=== PATIENT | female | born 1990 | race Caucasian/White ===

== ENCOUNTER 2022-05-11 08:14 | Emergency (ER) | payer MEDICAID ==
[~2022-05-11] VITALS: Ht 157.5 cm; Wt 63.0 kg
[2022-05-11] MEDS ORDERED: LEVE1000 MT (08:56)
[2022-05-11] MEDS ORDERED: METF-416 MT (08:56)
[2022-05-11] MEDS ORDERED: LEVETIRACETAM 1000MG PREMIX 100 ML IV ONE (09:00)
[2022-05-11 09:38] LABS: BASOPHILS % 0.5 % (0.0-2.0); CHLORIDE 108 mEq/L (98-107); EOSINOPHILS % 2.2 % (0.0-5.0); HEMATOCRIT. 38.7 % (36.0-48.0); LYMPHOCYTES % 23.4 % (20.0-50.0); MEAN CORPUSCULAR HEMOGLOBIN 28.9 pg (28.0-32.0); MEAN CORPUSCULAR VOLUME 85.9 fL (81.0-99.0); MEAN PLATELET VOLUME 9.6 fl (7.4-10.4); MONOCYTES % 6.4 % (2.0-8.0); NEUTROPHILS % 67.5 % (40.0-76.0); PLATELET 249 x1000/uL (130-400); RED BLOOD CELL COUNT 4.51 mill/uL (4.2-5.4); RED CELL DISTRIBUTION WIDTH 13.3 % (11.6-14.6)
[2022-05-11 09:47] LABS: ETHANOL BLOOD < 10 mg/dL
[2022-05-11 10:45] VITALS: BP 111/72
[2022-05-11] MEDS ORDERED: ACETAMINOPHEN 325MG TABLET PO ONE (11:00)
== END 2022-05-11 11:00 | disposition home or self-care (01) ==
LOC: EDBD 08:28 → ER 08:28
DX: R56.9 Unspecified convulsions (principal); R51.9 Headache, unspecified; E11.9 Type 2 diabetes mellitus without complications
CPT/HCPCS: 36415; 80053; 80320; 85025; 96365; 99284; J1953; G0480

== ENCOUNTER 2024-08-08 09:29 | Emergency (ER) | payer MEDICAID, OTHER ==
[~2024-08-08] VITALS: Ht 162.6 cm; Wt 73.0 kg
[~2024-08-08 09:29] MED LIST: LEVE1000 MT; METF-416 MT
[2024-08-08 09:33] VITALS: O2SAT 100
[2024-08-08 10:14] LABS: BASOPHILS % 0.3 % (0.0-2.0); EOSINOPHILS % 2.1 % (0.0-5.0); HEMATOCRIT. 40.9 % (36.0-48.0); HEMOGLOBIN. 13.7 g/dL (12.0-16.0); LYMPHOCYTES % 29.9 % (20.0-50.0); MEAN CORPUSCULAR HEMOGLOBIN 29.5 pg (28.0-32.0); MEAN CORPUSCULAR HGB CONC 33.5 g/dL (31.0-37.0); MEAN PLATELET VOLUME 8.9 fl (7.4-10.4); MONOCYTES % 7.4 % (2.0-8.0); NEUTROPHILS % 60.3 % (40.0-76.0); PLATELET 278 x1000/uL (130-400); RED BLOOD CELL COUNT 4.65 mill/uL (4.2-5.4); RED CELL DISTRIBUTION WIDTH 13.3 % (11.6-14.6); WHITE BLOOD COUNT 9.5 x1000/uL (4.5-11.0)
[2024-08-08 10:22] LABS: CHLORIDE 103 mEq/L (98-107); POTASSIUM 4.2 mEq/L (3.5-5.1); SODIUM 135 mEq/L (136-145)
[2024-08-08 10:23] LABS: CARBON DIOXIDE 23 mEq/L (21-32)
[2024-08-08 10:24] LABS: CALCIUM 9.1 mg/dL (8.7-10.4)
[2024-08-08 10:28] LABS: CREATININE 0.6 mg/dL (0.6-1.0); GLUCOSE 228 mg/dL (70-105); UREA NITROGEN BLOOD 9 mg/dL (9-23)
[2024-08-08 10:44] LABS: ETHANOL BLOOD < 10 mg/dL (<10)
[2024-08-08] MEDS: LEVETIRACETAM 500MG PREMIX 100 ML IV ONE (10:44)
[2024-08-08] MEDS ORDERED: INSU100I24 SQ (15:38)
[2024-08-08 15:48] VITALS: BP 134/95; PULSE 85; RESP 12; TEMP 36.83628; O2SAT 100
== END 2024-08-08 16:00 | disposition home or self-care (01) ==
LOC: ER 09:29
DX: R56.9 Unspecified convulsions (principal); E11.9 Type 2 diabetes mellitus without complications
CPT/HCPCS: 80048; 80320; 82962; 85025; 36415; 96365; 96366; 99285; J1953; Z7610 ×3; G0480